=== PATIENT | female | born 1955 | race Caucasian/White ===

== ENCOUNTER 2016-07-21 08:25 | Emergency (ER) | payer MEDICAID ==
[~2016-07-21] VITALS: Ht 157.5 cm; Wt 78.0 kg
[2016-07-21 08:28] VITALS: Ht 157.5 cm; Wt 78.0 kg
[2016-07-21] MEDS ORDERED: HYDROmorphONE 1 MG/ML SYG IV STA (08:41)
[2016-07-21] MEDS ORDERED: ONDANSETRON 4 MG INJ IV STA (08:41)
[2016-07-21] MEDS ORDERED: SOD CHLORIDE 0.9% 1,000 ML IV STA (08:41)
[2016-07-21 09:12] LABS: ADD SCAN DIFF NO
[2016-07-21 09:15] LABS: BASOPHILS % 0.2 % (0.0-2.0); EOSINOPHILS % 0.4 % (0.0-7.0); HEMATOCRIT 41.8 % (37.0-47.0); HEMOGLOBIN 13.8 g/dl (12.0-16.0); LYMPHOCYTES # 2.8 10^3/ul (0.8-2.9); LYMPHOCYTES % 26.4 % (15.0-51.0); MEAN CORPUSCULAR VOLUME 93.9 fl (82.0-101.0); MEAN PLATELET VOLUME 11.8 fl (7.4-10.4); MONOCYTE # 1.1 10^3/ul (0.3-0.9); MONOCYTES % 9.9 % (0.0-11.0); NEUTROPHIL # 6.7 10^3/ul (1.6-7.5); NEUTROPHILS % 62.7 % (39.0-77.0); PLATELET COUNT 231 10^3/UL (140-415); RED BLOOD COUNT 4.45 10^6/ul (4.20-5.40); RED CELL DISTRIBUTION WIDTH 13.7 % (11.5-14.5); WHITE BLOOD COUNT 10.6 10^3/ul (4.8-10.8)
[2016-07-21 09:32] LABS: ALBUMIN/GLOBULIN RATIO 1.17; BILIRUBIN,INDIRECT 0.2 mg/dl (0-1.1); BILIRUBIN,TOTAL 0.2 mg/dl (0.2-1.3); CALCIUM 8.6 mg/dl (8.4-10.2); CREATININE 0.82 mg/dl (0.44-1.00); POTASSIUM 3.8 mmol/L (3.5-5.1); TOTAL PROTEIN 7.4 g/dl (6.1-8.1)
[2016-07-21] MEDS ORDERED: SOD CHLORIDE 0.9% 100 ML ONE (09:46)
[2016-07-21] MEDS ORDERED: IOHEXOL 300MG/ML 150 ML BTL ONE (09:46)
--- NOTE | 2016-07-21 10:24 | RADRPT ---
PROCEDURE: CT scan of the abdomen and pelvis with IV contrast. CLINICAL INDICATION: 60 year-old female with left-sided abdominal pain. TECHNIQUE: Thin section axial, coronal and sagittal images were performed through the abdomen and pelvis following uncomplicated intravenous administration of 100 ccs of Omnipaque-300 contrast. Radiation Dose: CTDI: 12.8 and DLP: 697 One or more of the following dose reduction techniques were used: - Automated exposure control. - Adjustment of the mA and/or kV according to patient size. Use of iterative reconstruction technique. COMPARISON: None FINDINGS: Soft tissues: There is a metal clip adjacent to a spiculated mass near the chest wall in the lateral aspect of the left breast. The mass measures about 1.6 x 1.9 x 2 cm in size. Correlation is neede d along with review of the patient's mammograms which are not available at this time. Lungs and pleural spaces: There is a suboptimal inspiration with compressive atelectasis in the base s of the lungs. No pleural effusion is identified. Heart: Normal. No pericardial effusion is identified. The liver, common bile duct and gallbladder: Liver is enlarged measuring 16.9 cm AP. The hepatic an d portal veins are patent. No intrahepatic biliary ductal dilatation or mass is identified. The ga llbladder and gallbladder wall are normal. The extrahepatic common bile duct is normal. Gastrointestinal: There is a diverticulum in the hepatic flexure. There is fluid in the ascending a nd transverse colon. There are diverticula in the descending and sigmoid colon. The vermiform appe ndix is not visualized. There is no evidence of diverticulitis. Pancreas: Normal. Kidneys, bladder and adrenal glands : Normal. The bladder is incompletely distended. No bladder st one or bladder wall masses noted. Spleen: Normal. Lymph nodes: No enlarged periportal, mesenteric, retroperitoneal or pelvic sidewall lymph nodes are identified. There are small inguinal lymph nodes. Reproductive system and pelvis : The uterus and ovaries are not visualized. No abnormal adnexal mas ses observed. Bony elements: There are degenerative osteophytes in the thoracic and lumbosacral spine with dorsal disk space narrowing at L5-S1. No acute bony fracture or bone metastasis is identified. Vasculature: There are vascular calcifications in the abdominal aorta and proximal left renal artery . IMPRESSION: 1. Diverticulosis of the colon abdominal involving the descending and sigmoid colon.. No evidence of diverticulitis. The vermiform appendix is not visualized. 2. Spiculated mass near the chest wall in the lateral left breast with adjacent clips related to ea rlier biopsy. It measures 1.6 x 1.9 x 2 cm. Correlation with the patient's mammogram and biopsy re sults are needed. The lesions appearance would be consistent with a breast cancer. Prior mammogram s are not available. 3. Compressive atelectasis from a poor inspiration in the bases of the lungs. 4. Atherosclerotic vascular disease. 5. Osteoarthritis of the lumbar spine. 6. Hepatomegaly with mild fatty infiltration of the liver. RPTAT:AAJJ Physician [place] Date Time Electronically viewed and signed by Neptali Rosales Physician on 07/21/2016 10:24 /
[2016-07-21] MEDS ORDERED: DIPH1TAB PO (11:17)
[2016-07-21] MEDS ORDERED: ONDA4TAB14 PO (11:17)
[2016-07-21] MEDS ORDERED: HYDR-906 PO (11:17)
[2016-07-21] MEDS ORDERED: METR500T PO (11:17)
[2016-07-21] MEDS ORDERED: CIPR500T4 PO (11:17)
--- NOTE | 2016-07-21 11:23 | ERD ---
ER Documentation Chief Complaint Date/Time DATE: 07/21/16 TIME: 11:20 Chief Complaint Complains of abdominal pain x 3 days ago HPI This is 60-year-old female with history of left breast cancer complaining of pain to her left abdominal region for the past 3 days and got worse this morning with nausea vomiting and diarrhea. The patient's had nonbilious nonbloody vomiting no bloody diarrhea. She states she has had 2 episodes of vomiting this morning and 2 episodes of diarrhea. No history of diverticulitis or other intra-abdominal pathology. Describes the pain is crampy and nonradiating nothing seems to make the pain worse or better. No chest pain or shortness of breath ROS All systems reviewed and are negative except as per history of present illness. Medications Home Meds Active Scripts Diphenoxylate HCl/Atropine (Lomotil 2.5-0.025 mg Tablet) 1 Each Tablet, 1 TAB PO QID Y for DIARRHEA, #10 TAB Prov:DANIELA REYNAS A. DO 07/21/16 Hydrocodone/Acetaminophen ([place] 5-325 Tablet) 1 Each Tablet, 1 TAB PO Q6H Y for PAIN, #7 TAB Prov:DANIELA REYNAS A. DO 07/21/16 Ondansetron (Ondansetron Odt) 4 Mg Tab.rapdis, 4 MG PO Q6H Y for NAUSEA AND/OR VOMITING, #10 TAB Prov:KATHYA REYNASTMINGOS A. DO 07/21/16 Metronidazole* (Flagyl*) 500 Mg Tablet, 500 MG PO TID for 10 Days, TAB Prov:KATHYA REYNASTMINGOS A. DO 07/21/16 Ciprofloxacin Hcl* (Ciprofloxacin Hcl*) 500 Mg Tablet, 500 MG PO BID for 7 Days , TAB Prov:KATHYA REYNASTMINGOS A. DO 07/21/16 Allergies Allergies: Coded Allergies: No Known Allergy (Unverified , 07/21/16) PMhx/Soc History of Surgery: Yes (lt breast lumpectomy ) Anesthesia Reaction: No Hx Neurological Disorder: No Hx Respiratory Disorders: No Hx Cardiac Disorders: No Hx Psychiatric Problems: No Hx Miscellaneous Medical Probl: Yes (lt breast ca ) Hx Alcohol Use: No Hx Substance Use: No Hx Tobacco Use: No Smoking Status: Never smoker FmHx Family History: No coronary disease Physical Exam Vitals Vital Signs Date Time Temp Pulse Resp B/P Pulse Ox O2 Delivery O2 Flow Rate FiO2 07/21/16 08:28 98.5 99 20 128/72 98 Physical Exam Const: Well-developed, well-nourished Head: Atraumatic, normocephalic Eyes: Normal Conjunctiva, PERRLA, EOMI, normal sclera, no nystagmus ENT: Normal External Ears, Nose and Mouth, moist mucus membranes. Neck: Full range of motion. No meningismus, no lymphadenopathy. Resp: Clear to auscultation bilaterally, no wheezing, rhonchi, rales Cardio: Regular rate and rhythm, no murmurs, S1 S2 present Abd: Soft, mild tenderness in the left abdominal region in the upper and lower quadrants, non distended. Normal bowel sounds, no guarding or rebound , no pulsitile abdominal masses or bruits Skin: No petechiae or rashes, no ecchymosis , no maculopapular rash Back: No midline or flank tenderness Ext: No cyanosis, or edema, FROM x 4, normal inspection, neurovascularly intact x 4 Neur: Awake and alert, STR 5/5 x 4, sensation intact x 4, no focal findings, cerebellum intact Psych: Normal Mood and Affect Result Diagram: 07/21/16 0855 07/21/16 0855 Results 24 hrs Laboratory Tests Test 07/21/16 08:55 White Blood Count 10.610^3/ul Red Blood Count 4.4510^6/ul Hemoglobin 13.8g/dl Hematocrit 41.8% Mean Corpuscular Volume 93.9fl Mean Corpuscular Hemoglobin 31.0pg Mean Corpuscular Hemoglobin Concent 33.0g/dl Red Cell Distribution Width 13.7% Platelet Count 67367^3/UL Mean Platelet Volume 11.8fl Neutrophils % 62.7% Lymphocytes % 26.4% Monocytes % 9.9% Eosinophils % 0.4% Basophils % 0.2% Nucleated Red Blood Cells % 0.0/100WBC Neutrophils # 6.710^3/ul Lymphocytes # 2.810^3/ul Monocytes # 1.110^3/ul Eosinophils # 0.010^3/ul Basophils # 0.010^3/ul Nucleated Red Blood Cells # 0.010^3/ul Sodium Level 141mmol/L Potassium Level 3.8mmol/L Chloride Level 108mmol/L Carbon Dioxide Level 24mmol/L Anion Gap 13 Blood Urea Nitrogen 10mg/dl Creatinine 0.82mg/dl Glucose Level 104mg/dl Calcium Level 8.6mg/dl Total Bilirubin 0.2mg/dl Direct Bilirubin 0.00mg/dl Indirect Bilirubin 0.2mg/dl Aspartate Amino Transf (AST/SGOT) 154IU/L Alanine Aminotransferase (ALT/SGPT) 90IU/L Alkaline Phosphatase 88IU/L Total Protein 7.4g/dl Albumin 4.0g/dl Globulin 3.40g/dl Albumin/Globulin Ratio 1.17 Lipase 151U/L Current Medications Medications (Trade) Dose Ordered Sig/Soni Route PRN Reason Start Time Stop Time Status Last Admin Dose Admin Sodium Chloride (NS) 1,000 ml @ 1,000 mls/hr Q1H STAT IV 07/21/16 08:41 07/21/16 09:40 DC 07/21/16 08:54 Hydromorphone HCl (Dilaudid) 1 mg ONCE STAT IV 07/21/16 08:41 07/21/16 08:43 DC 07/21/16 08:55 Ondansetron HCl (Zofran Inj) 4 mg ONCE STAT IV 07/21/16 08:41 07/21/16 08:43 DC 07/21/16 08:54 IV Flush 10 ml 10 ml STK-MED ONCE .ROUTE 07/21/16 09:46 07/21/16 09:47 DC 07/21/16 10:00 Sodium Chloride (NS) 100 ml @ ud STK-MED ONCE .ROUTE 07/21/16 09:46 07/21/16 09:47 DC 07/21/16 10:00 Iohexol (Omnipaque 300mg/ ml) 150 ml STK-MED ONCE .ROUTE 07/21/16 09:46 07/21/16 09:47 DC 07/21/16 10:01 Procedures/MDM PROCEDURE: CT scan of the abdomen and pelvis with IV contrast. CLINICAL INDICATION: 60 year-old female with left-sided abdominal pain. TECHNIQUE: Thin section axial, coronal and sagittal images were performed through the abdomen and pelvis following uncomplicated intravenous administration of 100 ccs of Omnipaque-300 contrast. Radiation Dose: CTDI: 12.8 and DLP: 697 One or more of the following dose reduction techniques were used: - Automated exposure control. - Adjustment of the mA and/or kV according to patient size. Use of iterative reconstruction technique. COMPARISON: None FINDINGS: Soft tissues: There is a metal clip adjacent to a spiculated mass near the chest wall in the lateral aspect of the left breast. The mass measures about 1.6 x 1.9 x 2 cm in size. Correlation is needed along with review of the patient's mammograms which are not available at this time. Lungs and pleural spaces: There is a suboptimal inspiration with compressive atelectasis in the bases of the lungs. No pleural effusion is identified. Heart: Normal. No pericardial effusion is identified. The liver, common bile duct and gallbladder: Liver is enlarged measuring 16.9 cm AP. The hepatic and portal veins are patent. No intrahepatic biliary ductal dilatation or mass is identified. The gallbladder and gallbladder wall are normal. The extrahepatic common bile duct is normal. Gastrointestinal: There is a diverticulum in the hepatic flexure. There is fluid in the ascending and transverse colon. There are diverticula in the descending and sigmoid colon. The vermiform appendix is not visualized. There is no evidence of diverticulitis. Pancreas: Normal. Kidneys, bladder and adrenal glands : Normal. The bladder is incompletely distended. No bladder stone or bladder wall masses noted. Spleen: Normal. Lymph nodes: No enlarged periportal, mesenteric, retroperitoneal or pelvic sidewall lymph nodes are identified. There are small inguinal lymph nodes. Reproductive system and pelvis : The uterus and ovaries are not visualized. No abnormal adnexal masses observed. Bony elements: There are degenerative osteophytes in the thoracic and lumbosacral spine with dorsal disk space narrowing at L5-S1. No acute bony fracture or bone metastasis is identified. Vasculature: There are vascular calcifications in the abdominal aorta and proximal left renal artery. IMPRESSION: 1. Diverticulosis of the colon abdominal involving the descending and sigmoid colon.. No evidence of diverticulitis. The vermiform appendix is not visualized. 2. Spiculated mass near the chest wall in the lateral left breast with adjacent clips related to earlier biopsy. It measures 1.6 x 1.9 x 2 cm. Correlation with the patient's mammogram and biopsy results are needed. The lesions appearance would be consistent with a breast cancer. Prior mammograms are not available. 3. Compressive atelectasis from a poor inspiration in the bases of the lungs. 4. Atherosclerotic vascular disease. 5. Osteoarthritis of the lumbar spine. 6. Hepatomegaly with mild fatty infiltration of the liver. RPTAT:AAJJ Neptali Rosales Physician Date Time Electronically viewed and signed by Neptali Rosales, Physician on 07/21/2016 10:24 JM/ CC: YOLETTE REYNA DO Blood work is relatively unremarkable. Patient likely has some microscopic diverticulitis going on. Or she has a bad food exposure or viral illness. Told the patient of her left breast mass that was detected on CT scan. Patient tells me she has had 2 breast mass in the left in the past and both have been excised. Told her this is very concerning looking for breast cancer. She said she will call her doctor on Friday to follow-up and get this worked up. She is given a copy of her CAT scan report We will treat with Bentyl, Zoan, Flagyl and Cipro Departure Diagnosis: Primary Impression: Vomiting and diarrhea Additional Impressions: Left lower quadrant pain Vomiting during late Breast mass, right Condition: Stable Patient Instructions: Abdominal Pain, Unknown Cause, (Female), Breast Mass, Uncertain Cause, Vomiting And Diarrhea, Nonspecific (Adult) YOLETTE REYNA DO Jul 21, 2016 11:22
[2016-07-21 11:29] VITALS: BP 122/66; PULSE 76; RESP 20; TEMP 98.2
== END 2016-07-21 11:30 | disposition home or self-care (01) ==
LOC: E/R 08:25
DX: R11.10 Vomiting, unspecified (principal); R10.32 Left lower quadrant pain; R19.7 Diarrhea, unspecified; N63 Unspecified lump in breast; Z85.3 Personal history of malignant neoplasm of breast
CPT/HCPCS: 36415; 74177; 80053; 83690; 85025; 96361; 96374; 96375; J1170; J2405; J7030; Q9967; Z7502; Z7610